=== PATIENT | male | born 1950 ===

== ENCOUNTER → 2018-11-22 15:02 | Outpatient (REF) | payer OTHER, SELFPAY | LOC: LAB 15:02 | PROVIDERS: Visit Provider Physician Assistant | DX: D49.2 Neoplasm of unspecified behavior of bone, soft tissue, and skin (principal); L01.01 Non-bullous impetigo; L57.0 Actinic keratosis; L20.84 Intrinsic (allergic) eczema; L82.1 Other seborrheic keratosis | CPT/HCPCS: 87070; 87075; 87077; 87147; 87186; 87205 ==